=== PATIENT | female | born 1955 | race Caucasian/White ===

== ENCOUNTER 2024-09-03 18:18 | Emergency (ER) | payer MEDICARE, SELFPAY ==
[2024-09-03 18:29] VITALS: BP 141/127; PULSE 77; RESP 18; TEMP 36.4; O2SAT 98; BMI 23.0
--- NOTE | 2024-09-03 18:30 | CRLHL7_ITS ---
For Patients: As a result of the Century Cures Act, medical imaging exams and procedure reports are released immediately into your electronic medical record. You may view this report before your referring provider. If you have questions, please contact your health care provider. INDICATION: Left lower extremity swelling. TECHNIQUE: Left lower extremity Doppler venous ultrasound examination was performed. Grayscale and color Doppler images were obtained. COMPARISON: None. FINDINGS: RIGHT LOWER EXTREMITY: Common femoral vein: Fully compressible. No deep vein thrombus. Normal flow and response to augmentation on color Doppler imaging. LEFT LOWER EXTREMITY: Common femoral vein: Fully compressible. No deep vein thrombus. Normal flow and response to augmentation on color Doppler imaging. Superficial femoral vein: Fully compressible. No deep vein thrombus. Normal flow on color Doppler imaging. Deep femoral vein: No deep vein thrombus Popliteal vein: Fully compressible. No deep vein thrombus. Normal flow on color Doppler imaging. Lower calf: The visualized posterior tibial and peroneal veins are fully compressible. No deep vein thrombus. Normal flow and response to augmentation on color Doppler imaging. Superficial veins: The superficial veins, including the greater saphenous vein, remain patent and are fully compressible. Soft tissues: No popliteal fossa fluid collection identified. IMPRESSION: No deep vein thrombus within the left lower extremity. Dictated by Harris Chauhan MD @ 09/03/2024 7:43:51 PM (Electronically Signed)
--- NOTE | 2024-09-03 18:37 | ED.GENADULT ---
HPI - General Adult General Date Seen: 09/03/24 Chief complaint: Extremity Pain/Injury, Lower Stated complaint: possible blood clot L leg Time Seen by Provider: 09/03/24 18:22 Source: patient Mode of arrival: ambulatory Limitations: no limitations History of Present Illness HPI narrative: Patient is a 68-year-old female presenting for left leg pain. She states a couple weeks ago she tripped and fell and hurt her left ankle. She was getting better but then noticed last night she started having some left ankle left lower leg pain and swelling. Pain continued until today and was initially getting worse. She states it even hurts to put a blanket over her legs. She went to urgent care for evaluation was told to come to the emergency department for possible blood clot. Has noticed some mild warmth and swelling noted to the lower extremity. The pain is to the distal lateral anterior aspect of her leg. No other concerns noted. No history of blood clots. Denies chest pain or shortness of breath. No other concerns noted at this time. Is not having any associated numbness or weakness. Related Data Home Medications ?Medication ?Instructions ?Recorded ?Confirmed albuterol sulfate 90 mcg/actuation 2 puff inhalation Q4-6H PRN 01/07/24 09/03/24 aerosol inhaler budesonide-formoterol HFA 160 1 puff inhalation BID 01/07/24 09/03/24 mcg-4.5 mcg/actuation aerosol inhaler (Symbicort) irbesartan 75 mg tablet 75 mg PO QPM 01/07/24 09/03/24 levothyroxine 112 mcg tablet mcg PO 01/07/24 09/03/24 sertraline 50 mg tablet 50 mg PO DAILY 01/07/24 09/03/24 magnesium gluconate 27 mg 27 mg PO QPM cramps 09/03/24 09/03/24 magnesium (500 mg) tablet (Mag-G) omeprazole 20 mg capsule,delayed 20 mg PO DAILY 09/03/24 09/03/24 release valacyclovir 1 gram tablet 4,000 mg PO ONCE 09/03/24 09/03/24 Allergies Allergy/AdvReac Type Severity Reaction Status Date / Time No Known Drug Allergies Allergy Verified 09/03/24 17:42 Review of Systems Narrative: Pertinent systems reviewed and were negative unless stated in HPI PFSH PFSH Surgical History 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 Moist mucous membranes. Extremities: Peripheral pulses 2+ and equal in dorsalis pedis. Mild swelling and tenderness noted to the left lower leg in the distal anterior lateral aspect RESP: Unlabored respiratory effort. MSK:Extremities w/o deformity, Normal Active ROM Skin: Warm, Dry. No rashes or lesions. Neuro: Normal Muscle tone, No focal neurological deficits. Psych: Awake, Alert, & Oriented x3. Appropriate mood and affect. Const: Vital Signs, click to edit/add: Vital Signs - 24 hr 09/03/24 18:29 Temperature 97.5 F L Pulse Rate [Pulse Oximeter] 77 Respiratory Rate 18 Blood Pressure [Ri ght Upper Arm] 141/127 H Pulse Oximetry 98 Oxygen Delivery Me thod Room Air Course Vital Signs Vital signs: Initial Vital Signs Temperature 97.5 F L 09/03/24 18:29 Temperature Source Temporal Artery Scan 09/03/24 18:29 Pulse Rate 77 09/03/24 18:29 Pulse Rhythm Regular 09/03/24 18:29 Respiratory Rate 18 09/03/24 18:29 Blood Pressure 141/127 H 09/03/24 18:29 Blood Pressure Mean 131 H 09/03/24 18:29 Blood Pressure Position Sitting 09/03/24 18:29 Pulse Oximetry 98 09/03/24 18:29 Oxygen Delivery Method Room Air 09/03/24 18:29 Vital Signs Temperature 97.5 F L 09/03/24 18:29 Pulse Rate 77 09/03/24 18:29 Respiratory Rate 18 09/03/24 18:29 Blood Pressure 141/127 H 09/03/24 18:29 Pulse Oximetry 98 09/03/24 18:29 Oxygen Delivery Method Room Air 09/03/24 18:29 Temperature 97.5 F L 09/03/24 18:29 Pulse Rate 77 09/03/24 18:29 Respiratory Rate 18 09/03/24 18:29 Blood Pressure 141/127 H 09/03/24 18:29 Pulse Oximetry 98 09/03/24 18:29 Oxygen Delivery Method Room Air 09/03/24 18:29 Medical Decision Making MDM Narrative Medical decision making narrative: Patient is a 68-year-old female presenting to emergency department for complaints of leg pain and swelling concern for a blood clot. She injured her low ankle couple weeks ago but since then has been doing well until some only having pain yesterday and today. Urgent care sent her for an ultrasound. She does have pain in her left lower extremity and the distal portion a leg does appear slightly swollen compared to the right. Ultrasound will be ordered. No signs of PE as she is not having any chest pain or shortness of breath and vital signs appear stable. Ultrasound returned showing no concerning abnormalities. She has a very sharp and electrical shock-like sensation to her lower leg and while this could be shingles also she is not developing any lesions at this time. This could be the early stages of shingles but I cannot diagnose it at this time. Also considered possible swelling causing compression of the nerves leading to her pain. Considering pain is at rest claudication seems very unlikely. Does not appear to have a peripheral neuropathy as she has no history of DVTs or other autoimmune disorders that could possibly cause it. At this time will discharge her home with Toradol to instymeds and she is agreeable to this plan. Imaging Data Venous US: Attestation: I have reviewed the pertinent imaging results. Radiologist's impression: No deep vein thrombus within the left lower extremity. Dictated by Harris Chauhan MD @ 09/03/2024 7:43:51 PM Discharge Plan Discharge Clinical Impression: Neuralgia Patient Disposition: Home, Self-Care Condition: Stable Additional Instructions: I cannot say for certain was causing her pain at this time but it does not appear to be a blood clot. It could be the early stages of shingles and you just have not started developing lesions yet. Could also be the swelling is now compressing nerves and that is causing the pain. I cannot say for certain but for now watch for any lesion development and try and keep your leg elevated above the heart. Take the Toradol for pain. While you are taking Toradol do not take other NSAIDs as as they are the same class of drugs. Prescriptions: No Action irbesartan 75 mg tablet 75 mg PO QPM budesonide-formoterol [Symbicort] 160-4.5 mcg/actuation HFA aerosol inhaler 1 puff inhalation BID sertraline 50 mg tablet 50 mg PO DAILY levothyroxine 112 mcg tablet PO albuterol sulfate 90 mcg/actuation HFA aerosol inhaler 2 puff inhalation Q4-6H PRN omeprazole 20 mg capsule,delayed release(DR/EC) 20 mg PO DAILY magnesium gluconate [Mag-G] 27 mg magnesium (500 mg) tablet 27 mg PO QPM valacyclovir 1 gram tablet 4,000 mg PO ONCE Follow Up/Referrals: Provider,Not a Local [Primary Care Provider] - Stand Alone Forms: [employer] Info Instructions
== END 2024-09-03 20:22 | disposition home or self-care (01) ==
PROVIDERS: Emergency Provider Student in an Organized Health Care Education/Training Program
DX: M79.2 Neuralgia and neuritis, unspecified (principal)
CPT/HCPCS: 93971; 99282; 99283

== ENCOUNTER 2024-10-06 12:30 | Outpatient (CLI) | payer MEDICARE, SELFPAY ==
--- OUTSIDE RECORDS SUMMARY | 2024-10-06 12:34 | XMS_ITS | Encounter Summary ---
Author Organization [facility] Address [address] [address] Care Team Providers Care Rug Weaver Name Role Phone Go Mendoza MD Primary Care Provider Reason for Visit * Reason Comments Refill irbesartan (AVAPRO) 75 MG tablet [Pharmacy Med Name: IRBESARTAN 75MG TABLETS] Encounter Details Date Type Department Care Team (Late st Contact Info) Description 07/23/[address] [facility] [address] [place] [address] Go Mendoza MD [address] [place] [address] Refill (irbesartan (AVAPRO) 75 MG tablet [Pharmacy Med Name: IRBESARTAN 75MG TABLETS]) Social History Tobacco Use Types Packs/Day Years Used Date Smoking Tobacco: Never Passive Smoke Exposure: Never Smokeless Tobacco: Never Comments:Pt states she never smoked Alcohol Use Standard Drinks/Week Comments Yes 0 (1 standard drink = 0.6 oz pur e alcohol) Socially PHQ-2 Answer Date Recorded PHQ-2 Score 2 06/16/2024 Sex and Gender Information Value Date Recorded Sex Assigned at Not on file Gender Identity Not on file Sexual Orientation Not on file documented as of this encounter Nursing Notes * Yelena Argueta RN - 07/28/2024 8:06 PM CDT Refused duplicate medication request. Requested Prescriptions Refused Prescriptions Disp Refills irbesartan (AVAPRO) 75 MG tablet [Pharmacy Med Name: IRBESARTAN 75MG TABLETS] 90 Tablet 3 Sig: take 1 tablet by mouth every evening Refused By: YELENA ARGUETA Reason for Refusal: Refill Not Appropriate * Cristal Resendiz Xrwcomm - 07/23/2024 8:07 AM CDT irbesartan (AVAPRO) 75 MG tablet [Pharmacy Med Name: IRBESARTAN 75MG TABLETS] Medication started: 02/18/2021 Last ordered by GO MENDOZA: 06/17/2024 (36 days ago) QTY: 90, Refills: 3, Sig: take 1 tablet (75mg) by mouth every evening. (changed but equivalent) -> The request contains a note from the pharmacy. -> Refill x 12 months, qty: 90, refills: 3 (until due for an office visit, Cr check and K check) Last qualifying visit: 06/16/2024 (with GO MENDOZA) Next scheduled visit: None Cr: 0.74 mg/dL on 06/16/2024 K: 4.2 mEq/L on 06/16/2024 [facility] Embedded Refills, Reference: [id number], 07/23/2024 8:07:43 AM HUET, Shawn: EULA Refill [facility] - [facility] [[id number]] ([id number]) * Cristal Resendiz - 07/23/2024 8:07 AM CDT The following lab order(s) may be associated with the Result Note below: COMPREHENSIVE METABOLIC PANEL Notes recorded by Sunita Ceja on 06/17/2024 at 10:19 AM CDT Patient notified of results and result note and verbalized understanding. ------ Notes recorded by Go Mendoza on 06/17/2024 at 6:06 AM CDT Low sodium Rest of labs look okay with good level of thyroid. Increase salt in diet and decrease water consumption-- probably daily dilution on a daily basis. Will send out magnesium to take 1 tab in evening to try to help muscle cramping but this could be aggravated by low sodium. Recheck labs entered in 1 month. Gamaliel Mendoza MD 06/17/2024 6:06 AM documented in this encounter Plan of Treatment Not on file documented as of this encounter Visit Diagnoses Not on filedocumented in this encounter Care Teams Rug Weaver Relationship Specialty Start Date End Date Go Mendoza MD [address] [id number] PCP - General Family Practice 02/17/21 documented as of this encounter
--- OUTSIDE RECORDS SUMMARY | 2024-10-06 12:34 | XMS_ITS | Clinical Summary ---
Author Organization [facility] Address [address] [place] [address] Care Team Providers Care Special Needs Tutor Name Role Phone Go Mendoza MD Primary Care Provider Source Comments You are receiving this document as you are listed as the primary care provider,follow-up provider, or the patient has been referred to you for consultation.This is in compliance with the Medicare and[facility]centive [facility],which states Providers who transition their patient to another setting of careor provider of care or refers their patient to another provider of care shouldprovide summary care record for each transition of care or referral. [facility] Allergies Active Allergy Reactions Criticality Noted Date Comments Gluten Meal Other, see comments 12/28/2015 [facility] Comment: Celiac disease; [facility] Reaction: Other Molds & Smuts Other, see comments 10/03/2013 [facility] Comment: Nasal congestion; [facility] Reaction: Other - Describe In Comment Field Other Other, see comments 10/03/2013 [facility] Comment: Grass- nasal congestion; [facility] Reaction: Other - Describe In Comment Field Medications Medication Sig Dispensed Refills Start Date End Date Status multivitamin (THERAGRAN) tablet Take 1 Tablet by mouth daily. 30 Tablet 02/18/2021 Active ALBUterol sulfate HFA 108 (90 Base) MCG/ACT inhalerIndications:B ronchiectasis without complication (HRC) Inhale 2 Puffs 4 times daily as needed (cough). 1 Each 11 06/17/2024 Active budesonide-formotero l (SYMBICORT) 160-4.5 MCG/ACT inhalerIndications:B ronchiectasis without complication (HRC),Mild intermittent asthma with acute exacerbation (HRC) Inhale 2 Puffs two times a day. Rinse mouth/gargle after use. 3 Each 3 06/17/2024 Active irbesartan (AVAPRO) 75 MG tablet Take 1 Tablet (75 mg) by mouth every evening. 90 Tablet 3 06/17/2024 06/17/2025 Active levothyroxine (SYNTHROID) 112 MCG tabletIndications:Hy pothyroidism, unspecified type (HRC) Take 0.5 Tablets (56 mcg) by mouth every morning. 45 Tablet 3 06/17/2024 Active omeprazole (PRILOSEC) 20 MG capsuleIndications:G astroesophageal reflux disease without esophagitis Take 1 Capsule (20 mg) by mouth daily before breakfast. 90 Capsule 3 06/17/2024 Active sertraline (ZOLOFT) 50 MG tabletIndications:GA D (generalized anxiety disorder) (HRC),Mild depression Take 1 Tablet (50 mg) by mouth daily. 90 Tablet 3 06/17/2024 Active valACYclovir (VALTREX) 1 g tabletIndications:He rpes simplex virus (HSV) infection TAKE 2 TABLETS BY MOUTH TWICE DAILY FOR 1 DAY AT FIRST SIGN OF COLD SORE 12 Tablet 11 06/17/2024 Active Magnesium Gluconate (MAGONATE) 500 (27 Mg) MGIndications:Noctur nal muscle cramps Take 1 Tablet (500 mg) by mouth every evening. For muscle cramping 90 Tablet 1 06/17/2024 Active Active Problems Problem Noted Date Diagnosed Date Nocturnal muscle cramps 06/17/2024 History of basal cell carcinoma 06/17/2024 Hyponatremia 06/17/2024 Splenic artery aneurysm 10/27/2022 Opacity of lung on imaging study 06/21/2022 ANG (generalized anxiety disorder) 02/18/2021 Mild depression 02/18/2021 Eyelid eczema 09/01/2016 Anxiety 12/30/2015 Cervical stenosis of spinal canal 10/19/2015 Cervical spondylosis 10/19/2015 Foraminal stenosis of cervical region 10/19/2015 Degenerative disc disease, cervical 10/19/2015 Neck pain of over 3 months duration 10/19/2015 Primary insomnia 09/15/2015 Solar elastosis 09/10/2015 Hypertension 07/09/2015 Claustrophobia 11/03/2014 Cervical spine pain 11/03/2014 Cervical radiculopathy 11/03/2014 Bulging disc 11/03/2014 Overview (06/14/2022): C5-C7 Carpal tunnel syndrome, bilateral 10/14/2014 Insomnia 01/26/2014 Brachial neuritis or radiculitis 07/14/2013 Overview: Brachial Neuritis On The Left Herpes simplex virus (HSV) infection 06/25/2013 Overview (06/14/2022): Type I Hypertonicity of bladder 09/12/2010 Hypothyroidism 05/05/2010 Asthma 04/28/2010 Overview: Asthma Reactive Airway Disease Shortness of breath 03/02/2010 Esophageal reflux 10/27/2009 Diverticulitis of colon 08/20/2009 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 12/09/2008 Actinic keratosis 05/28/2008 Bronchiectasis 04/02/2008 Rheumatoid arthritis 12/15/2007 Resolved Problems Problem Noted Date Diagnosed Date Resolved Date Basal cell carcinoma (BCC) o f vermilion border of lower lip 02/20/2021 06/17/2024 Pneumonia due to infectious organism 04/10/2016 09/25/2019 Bronchiectasis without complication 09/10/2015 08/29/2016 Neoplasm of uncertain behavior of skin 06/05/2015 06/17/2024 Overview (06/14/2022): Right leg Foraminal stenosis of cervical region 11/03/2014 03/13/2023 Overview (06/14/2022): with impingement C4-7, Right C3-4 Stenosis of cervical spine 11/03/2014 0 03/13/2023 Overview (06/14/2022): C5-7 Preoperative examination 10/06/201309/2014 Overview (09/25/2019): Visit For: Preoperative Exam Pain in limb 08/12/2013 03/13/2023 Overview (06/14/2022): Left hand Symptomatic menopausal or fe male climacteric states 07/17/2013 02/20/2021 Overview: Menopause Visit for screening mammogram 06/17/2013 10/06/2014 Overview (09/25/2019): Mammogram Screening Screening for malignant neoplasm of cervix 05/27/2013 11/03/2014 Overview (09/25/2019): Cervical Pap Smear Cervical spondylosis without myelopathy 11/26/2012 03/13/2023 Overview (06/14/2022): with central canal and foraminal stenosis Neoplasm of uncertain behavior of skin 10/09/2012 11/03/2014 Overview (09/25/2019): Skin Neoplasm Of Uncertain Behavior Hemoptysis 10/10/2011 10/06/2014 Overview (09/25/2019): Coughing Up Blood (Hemoptysis) Acute bronchiolitis due to o ther specified organisms 10/10/2011 10/06/2014 Overview (09/25/2019): Bronchiolitis Pneumonia, unspecified organism 07/18/2011 10/06/2014 Overview (09/25/2019): Pneumonia Candidiasis of vulva and vagina 07/18/2011 10/06/2014 Overview (09/25/2019): Vaginal Candidiasis Acute sinusitis 06/09/2011 10/06/2014 Overview (09/25/2019): Acute Sinusitis Pain in joint, forearm 03/24/201108/29 Overview (09/25/2019): Joint Pain, Localized In The Wrist Neoplasm of unspecified natu re of bone, soft tissue, and skin 03/07/2011 11/03/2014 Overview (09/25/2019): Skin Neoplasm-Left chest wall anterior/ Left internal calf Malignant neoplasm of skin 07/21/2010 1 12/06/2013 Overview (09/25/2019): Squamous Cell Carcinoma Of The Skin-Superficial / Legs Pain in joint, shoulder region 03/14/2010 08/29/2016 Overview (09/25/2019): Joint Pain, Localized In The Shoulder Other specified diseases of blood and blood-forming organs 08/20/2009 10/06/2014 Overview (09/25/2019): Macrocytosis Pain in joint, ankle and foot 04/01/2009 08/29/2016 Overview (09/25/2019): Ankle Joint Pain-Left 03/04 Hypothyroidism 04/02/2008 06/20/2022 Rheumatoid arthritis 04/02/2008 022 Anemia due to chronic illness 12/15/2007 08/29/2016 Overview (09/25/2019): Anemia Of Chronic Disease Encounters Date Type Department Care Team Description 07/23/2024 Refill [facility] [address] [place] [address] Go Mendoza MD Refill (irbesartan (AVAPRO) 75 MG tablet [Pharmacy Med Name: IRBESARTAN 75MG TABLETS]) from Last 3 Months Immunizations Name Administration Dates Next Due DTaP, Unspecified Formulation 08/07/2011 Flu Vac (3+ yrs) 09/07/2015, 9,10/03/2006,2004,09/08/2004,10/13/2003 Flu Vac Preserv Free (3+yrs) 08/18/2014 [id number] 09/24/2009 HepB Adult (Engerix-B, 20+ y rs, 3 dose series) 02/01/1999,08/19/1998,06/21/1998 Influenza (Fluzone 0.25, 6-35 mos) 09/07/2015 Influenza D3Y2-29 11/01/2009 Influenza IIV4 (Quadrivalent ) 0.5mL (01276) 10/09/2021,08/15/2016,08/18/2014 Influenza IIV4 (Quadrivalent ) Fluad, 65+ Yrs 09/01/2022 Influenza ccIIV3 6 months+ (Flucelvax) 08/15/2016 Influenza, Unspecified Formulation 09/03,10/08/2012,08/26/2011,2008,09/23/2008,09/30/2007 Moderna Monovalent 12+ 10/09/2021 PPSV23 (Pneumovax) 11/26/2004,07/23/2000, 000 Pfizer Bivalent 12+ 09/01/2022 Td (7+ yrs) 07/20/1998 Tdap 08/07/2011 Family History Medical History Relation Name Comments Cancer Father Lung Diabetes Father Other Father Hemochromatosis Other Mother Emphysema Cancer Child Thyroid Cancer Other Daughter Nontropical (Ce liac) Sprue Cancer, Breast Maternal Aunt 1 Cancer, Ovary Maternal Aunt 2 Relation Name Status Comments Father Mother Child Daughter Maternal Aunt 1 Maternal Aunt 2 Social History Tobacco Use Types Packs/Day Years Used Date Smoking Tobacco: Never Passive Smoke Exposure: Never Smokeless Tobacco: Never Tobacco Cessation:Counseling Given: Not Answered Comments:Pt states she never smoked Alcohol Use Standard Drinks/Week Comments Yes 0 (1 standard drink = 0.6 oz pur e alcohol) Socially PHQ-2 Answer Date Recorded PHQ-2 Score 2 06/16/2024 Sex and Gender Information Value Date Recorded Sex Assigned at Not on file Gender Identity Not on file Sexual Orientation Not on file Last Filed Vital Signs Vital Sign Reading Time Taken Comments Blood Pressure 112/74 06/16/2024 3:37 PM CDT Pulse 77 06/16/2024 3:37 PM CDT Temperature 37.2 ??C (99 ??F) 03/12/2023 2:13 PM CDT Respiratory Rate 18 11/28/2016 11:25 AM STATEMENT DISTRIBUTION CLERK Oxygen Saturation 94% 06/16/2024 3:37 PM CDT Inhaled Oxygen Concentration - - Weight 61.2 kg (135 lb) 06/16/2024 3:37 PM CDT Height 162.6 cm (5' 4) 02/17/2021 3:38 PM CDT Body Mass Index 23.17 02/17/2021 3:38 PM CDT Plan of Treatment Health Maintenance Due Date Last Done Comments Hep C Screening (Preventive Services) 1955 Medicare Annual Wellness Visit 1955 Pneumococcal 65+ Yrs (2 - PCV) 11/26/2005 11/26/2004, 07/23/2000, 07/23/2000 Zoster/Shingles (1 of 2) 2006 Mammogram 09/08/2017 09/08/2016, 09/08/2016 Colonoscopy 08/25/2019 08/25/2009 (Completed) DTaP/Tdap/Td (3 - Tdap) 08/07/2021 08/07/20, 08/07/2011, 07/20/1998 Dexa 2021 COVID-19 Vaccine ( - 2023- season) 2024 09/01/2022, 10/09/2021 Influenza (#1) 2024 09/01/2022, 09/26, 08/15/2016, Additional history exists Cholesterol 06/16/2029 06/16/2024 RSV (1 - 1-dose 75+ series) 2031 HepB Completed 02/01/1999, 07/28, 06/21/1998 HepA Aged Out No longer eligi ble based on patient's age to complete this topic Hib Aged Out No longer eligi ble based on patient's age to complete this topic IPV (Polio) Aged Out No longer eligi ble based on patient's age to complete this topic RSV Aged Out No longer eligi ble based on patient's age to complete this topic MCV4 Aged Out No longer eligi ble based on patient's age to complete this topic Procedures Procedure Name Priority Date/Time Associated Diagnosis Comments LIPID PANEL & DIRECT LDL (IF NEEDED) Routine 06/16/2024 4:39 PM CDT Secondary hypertension (HRC) MM MAMMOGRAM SCREENING BILAT W CAD Routine 09/08/2016 9:55 AM CDT Encounter for long-term (current) use of high-risk medication from Last 3 Months or Most Recently Relevant to Health Maintenance Results * (ABNORMAL) Lipid Panel & Direct LDL (if Needed) (06/16/2024 4:39 PM CDT) Cholesterol 213(H) 0 - 199 mg/dL 06/16/2024 5:39 PM [facility] Triglyceride 115 <=149 mg/dL 06/16/2024 5:39 PM [facility] HDL Cholesterol 79 >=40 mg/dL 5:39 PM [facility] LDL, Calculated 111 <130 mg/dL 5:39 PM [facility] Non HDL Chol, Calculated 134 <=159 mg/dL 06/16/2024 5:39 PM [facility] Cholesterol/HDL Ratio 2.7 <=5.0 06/16/2024 5:39 PM [facility] Hours Fasting 0.1 8 - 12 Hours 06/16/2024 5:39 PM [facility] Comment:Lab unable to obtain patient's fasting status at time of specimen collection. Blood Venipuncture / Unknown 06/16/2024 4:39 PM CDT 06/16/2024 5:11 PM CDT Go Mendoza MD LAB_1 Performing Organization Address City/State/[facility] Co de Phone Number [facility] [address] [facility] [address] [place] [address] * MM Mammogram Screening Bilat W CAD (09/08/2016 9:55 AM CDT) Anatomical Region Laterality Modality Breast Bilateral Mammography Narrative 09/10/2016 3:52 PM CDT This is a summary report. The complete report is available in the patient's medical record. If you cannot access the medical record, please contact the sending organization for a detailed fax or copy. BILATERAL DIGITAL SCREENING MAMMOGRAM WITH COMPUTER-AIDED DETECTION 09/08/2016 CLINICAL HISTORY: ??Screening. ??On high risk medication. ?? COMPARISON: ??BILATERAL mammogram films 09/27/2010 and 12/13/07. TECHNIQUE: ??Digital craniocaudal and oblique views obtained of both breasts and interpreted using computer-assisted detection. FINDINGS: ??Scattered fibroglandular tissue in both breasts. ??No masses or suspicious microcalcifications. ?? IMPRESSION: ??No mammographic evidence of malignancy. ??Recommend routine screening mammograms in one year. ?? BI-RADS Category 1: Negative Portillo Whitfield M.D. Diagnostic Radiologist [facility] [place] [employer] [email or web address] ?? Procedure Note Portillo Whitfield MD - 09/26/2019 This is a summary report. The complete report is available in thepatient's medical record. If you cannot access the medical record, pleasecontact the sending organization for a detailed fax or copy. BILATERAL DIGITAL SCREENING MAMMOGRAM WITH COMPUTER-AIDED [id number]/14/2016 CLINICAL HISTORY: Screening. On high risk medication. COMPARISON: BILATERAL mammogram films 09/27/2010 and 12/13/07. TECHNIQUE: Digital craniocaudal and oblique views obtained of bothbreasts and interpreted using computer-assisted detection. FINDINGS: Scattered fibroglandular tissue in both breasts. No masses orsuspicious microcalcifications. IMPRESSION: No mammographic evidence of malignancy. Recommend routine screeningmammograms in one year. BI-RADS Category 1: Negative Portillo Whitfield M.D. Diagnostic Radiologist [facility] [email or web address] / Go Mendoza MD RAD MIGUEL ÁNGEL from Last 3 Months or Most Recently Relevant to Health Maintenance Advance Directives * Full Code (Latest Code Status on File) Date Activated Date Inactivated Comments 10/07/2013 9:15 AM 10/06/2013 6:00 PM * Full Code Date Activated Date Inactivated Comments 10/07/2013 9:15 AM 10/07/2013 6:00 AM Care Teams Special Needs Tutor Relationship Specialty Start Date End Date Go Mendoza MD [address] [place] [id number] PCP - General Family Practice 02/17/21
== END 2024-10-06 12:31 | disposition home or self-care (01) ==
PROVIDERS: PCP Registered Nurse; Visit Provider Registered Nurse
DX: Z00.00 Encounter for general adult medical examination without abnormal findings (principal); I10 Essential (primary) hypertension; E03.9 Hypothyroidism, unspecified
CPT/HCPCS: 80053; 84443

== ENCOUNTER 2025-02-20 08:00 | Outpatient (CLI) | payer MEDICARE, SELFPAY ==
--- NOTE | 2025-02-20 09:12 | P.ANES_ITS ---
Anesthesia Charges Start Date/Time Anesthesia Start Date: 02/20/25 Anesthesia Start Time: 08:43 Stop Date/Time Anesthesia Stop Date: 02/20/25 Anesthesia Stop Time: 09:15 Coding CPT Codes CPT Codes: ANES LWR INTST NDSC NOS - [id number] ([id number]) P3 - PATIENT W/SEVERE SYS DISEASE, QZ - ICE CREAM FREEZER ASSISTANT SVC W/O TELECOMMUNICATIONS OFFICER BY
--- NOTE | 2025-02-20 09:12 | W.ANESCHARGE ---
Anesthesia Charges Start Date/Time Anesthesia Start Date: 02/20/25 Anesthesia Start Time: 08:43 Stop Date/Time Anesthesia Stop Date: 02/20/25 Anesthesia Stop Time: 09:15 Coding CPT Codes CPT Codes: ANES LWR INTST NDSC NOS - 95958 ([id number]) P3 - PATIENT W/SEVERE SYS DISEASE, QZ - PANAMA HAT SMEARER SVC W/O RABBIT DRESSER BY
== END 2025-02-20 08:01 | disposition home or self-care (01) ==
LOC: OP CLINIC 08:01
PROVIDERS: PCP Registered Nurse; Visit Provider Surgery
DX: Z12.11 Encounter for screening for malignant neoplasm of colon (principal); D12.3 Benign neoplasm of transverse colon; K57.30 Diverticulosis of large intestine without perforation or abscess without bleeding; Z86.0100 Personal history of colon polyps, unspecified
CPT/HCPCS: 00811; 45385; 88305; J2405; J2704

== ENCOUNTER 2025-08-17 09:29 | Outpatient (CLI) | payer MEDICARE, SELFPAY ==
--- NOTE | 2025-08-17 10:56 | P.ANES_ITS ---
Anesthesia Charges Start Date/Time Anesthesia Start Date: 08/17/25 Anesthesia Start Time: 10:27 Stop Date/Time Anesthesia Stop Date: 08/17/25 Anesthesia Stop Time: 10:54 Coding CPT Codes CPT Codes: ANES LWR INTST NDSC NOS - 19582 ([id number]) P3 - PATIENT W/SEVERE SYS DISEASE, QX - DEPUTY COMMISSIONER SVC W/ MD MED DIRECTION, QK - GROUND MIXER 2-4 CNCRNT ANES PROC
--- NOTE | 2025-08-17 10:56 | W.ANESCHARGE ---
Anesthesia Charges Start Date/Time Anesthesia Start Date: 08/17/25 Anesthesia Start Time: 10:27 Stop Date/Time Anesthesia Stop Date: 08/17/25 Anesthesia Stop Time: 10:54 Coding CPT Codes CPT Codes: ANES LWR INTST NDSC NOS - 56100 ([id number]) P3 - PATIENT W/SEVERE SYS DISEASE, QX - GRAIN II FARMWORKER SVC W/ MD MED DIRECTION, QK - SHEET METAL TECHNICIAN 2-4 CNCRNT ANES PROC
--- NOTE | 2025-08-17 11:36 | P.ANES_ITS ---
Anesthesia Charges Start Date/Time Anesthesia Start Date: 08/17/25 Anesthesia Start Time: 10:27 Stop Date/Time Anesthesia Stop Date: 08/17/25 Anesthesia Stop Time: 10:54 Coding CPT Codes CPT Codes: ANES LWR INTST NDSC NOS - 34916 ([id number]) QK - AUTOMATIC RIVETING MACHINE OPERATOR 2-4 CNCRNT ANES PROC, QX - BOARD DESIGN ENGINEER SVC W/ MED DIRECTION, P3 - PATIENT W/SEVERE SYS DISEASE
--- NOTE | 2025-08-17 11:36 | W.ANESCHARGE ---
Anesthesia Charges Start Date/Time Anesthesia Start Date: 08/17/25 Anesthesia Start Time: 10:27 Stop Date/Time Anesthesia Stop Date: 08/17/25 Anesthesia Stop Time: 10:54 Coding CPT Codes CPT Codes: ANES LWR INTST NDSC NOS - [id number] ([id number]) QK - TISSUE PACKER 2-4 CNCRNT ANES PROC, QX - AUTISM TUTOR SVC W/ MED DIRECTION, P3 - PATIENT W/SEVERE SYS DISEASE
== END 2025-08-17 09:30 | disposition home or self-care (01) ==
LOC: OP CLINIC 09:31
PROVIDERS: PCP Family Medicine; Visit Provider Surgery
DX: Z12.11 Encounter for screening for malignant neoplasm of colon (principal); Z86.0101 Personal history of adenomatous and serrated colon polyps; D12.8 Benign neoplasm of rectum; K57.30 Diverticulosis of large intestine without perforation or abscess without bleeding
CPT/HCPCS: 00811; 45385; 88305; J2704

== ENCOUNTER 2025-09-10 08:41 | Outpatient (CLI) | payer MEDICARE, SELFPAY | END 2025-09-10 08:42 | disposition home or self-care (01) | PROVIDERS: PCP Family Medicine; Visit Provider Family Medicine | DX: D64.9 Anemia, unspecified (principal); I10 Essential (primary) hypertension; J47.9 Bronchiectasis, uncomplicated; K90.0 Celiac disease; M06.9 Rheumatoid arthritis, unspecified; R39.9 Unspecified symptoms and signs involving the genitourinary system; Z79.1 Long term (current) use of non-steroidal anti-inflammatories (NSAID) | CPT/HCPCS: 80053; 80061; 82607; 82728; 84443; 87086; 87186 ==

== ENCOUNTER 2025-11-20 15:23 | Outpatient (CLI) | payer MEDICARE, SELFPAY | END 2025-11-20 15:24 | disposition home or self-care (01) | LOC: NFLDREF 15:23 | PROVIDERS: PCP Family Medicine; Visit Provider Family Medicine | DX: E87.1 Hypo-osmolality and hyponatremia (principal) | CPT/HCPCS: 80048 ==